=== PATIENT | male | born 1950 | race Caucasian/White ===

== ENCOUNTER 2023-11-07 12:13 | Emergency (ER) | payer MEDICARE, BC ==
[2023-11-07 14:05] LABS: LYME AB IgG Negative (Negative); LYME AB IgM Negative (Negative)
[2023-11-10 11:44] LABS: ANAPLASMA PHAGOCYTOPHILUM PCR Not Detected; BABESIA MICROTI BY PCR Not Detected; BABESIA SPECIES BY PCR Not Detected; EHRLICHIA CHAFFEENSIS BY PCR Not Detected; EHRLICHIA EWINGII/CANIS BY PCR Not Detected; EHRLICHIA MURIS-LIKE BY PCR Not Detected
== END 2023-11-07 13:18 | disposition home or self-care (01) ==
LOC: JP.ED 12:13
DX: S60.562A Insect bite (nonvenomous) of left hand, initial encounter (principal); S30.861A Insect bite (nonvenomous) of abdominal wall, initial encounter; I10 Essential (primary) hypertension; Z95.0 Presence of cardiac pacemaker; Z79.01 Long term (current) use of anticoagulants; Z79.82 Long term (current) use of aspirin; W57.XXXA Bitten or stung by nonvenomous insect and other nonvenomous arthropods, initial encounter
CPT/HCPCS: 86618; 87468; 87469; 87484; 87798; 99284